=== PATIENT | female | born 1930 | race Hispanic/Latino ===

== ENCOUNTER 2017-04-14 16:40 | Emergency (ER) | payer MEDICARE ==
[2017-04-14] MEDS ORDERED: MORPHINE IV ONE (17:08)
[2017-04-14 17:42] LABS: Basophils % (Auto) 0.4 % (0.0-1.8); Eosinophils % (Auto) 1.7 % (0.0-4.3); Hematocrit 34.4 % (30.3-42.9); Hemoglobin 11.8 gm/dl (10.1-14.3); Mean Corpuscular HGB Conc 34 % (30-34); Mean Corpuscular Hemoglobin 32 pg (28-32); Mean Corpuscular Volume 93 fl (79-97); Platelet Count 140 K/mm3 (140-440); Red Cell Distribution Width 13.6 % (13.2-15.2); White Blood Count 7.1 K/mm3 (4.5-11.0)
--- NOTE | 2017-04-14 17:43 | XRay Report ---
FINAL REPORT EXAM: XR WRIST 2V RT HISTORY: RIGHT WRIST PAIN COMPARISONS: None. FINDINGS: Portable AP and lateral views of the right wrist Diffuse demineralization. Ossific fragment at the dorsal aspect of the carpus on lateral view measures up to 8 millimeters. Soft tissue swelling about the carpus. Calcification is present in the region of the triangle fibrocartilage and scapholunate ligament. Osseous lucencies are present surrounding the triscaphe joint most prominent in the distal capitate and scaphoid bones. Carpometacarpal osteoarthrosis. The distal radius and ulna appear intact. IMPRESSION: If patient has had a recent injury, the 8 millimeter ossific fragment at the dorsal aspect of the carpus may represent a triquetrum avulsion fracture. Pyrophosphate arthropathy.
[2017-04-14 17:52] LABS: INR 1.12 (0.87-1.13)
[2017-04-14 17:53] LABS: Partial Thromboplastin Time 26.5 Sec. (24.2-36.6)
--- NOTE | 2017-04-14 17:55 | Cat Scan Report ---
FINAL REPORT EXAM: CT HEAD/BRAIN WO CON HISTORY: fall/facial swelling TECHNIQUE: CT imaging is acquired through the brain without contrast. Transaxial reformations are provided. PRIORS: None. FINDINGS: Ventricles and CSF spaces are proportionately enlarged, consistent with parenchymal atrophy. Scattered deep and subcortical white matter hypodense foci are confluent in some areas and are compatible with microvascular angiopathy. No acute intracranial hemorrhage or mass effect. Calvarium and superficial scalp are intact. Partially visualized paranasal sinuses are clear. Mastoids are clear. IMPRESSION: No acute intracranial abnormality. 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 Please see CT face of the same date.
--- NOTE | 2017-04-14 18:00 | Cat Scan Report ---
FINAL REPORT EXAM: CT FACIAL BONES WO CON HISTORY: fall/facial swelling TECHNIQUE: CT images are acquired through the face without contrast. Transaxial , coronal and sagittal reformations are provided. PRIORS: None. FINDINGS: No facial fractures. Right frontal, periorbital and facial soft tissue swelling. Focal edema and/or hemorrhage is present anterior to the right malar eminence. The bony orbits, nasal bones, pterygoid plates, mandible and maxilla are intact. Normal spherical shape of the globes. Mild mucosal thickening with small fluid level in the left maxillary sinus. No other significant abnormality within the imaged paranasal sinuses or mastoid air cells. IMPRESSION: No facial fracture. Right frontal and facial soft tissue swelling as above. Mild left maxillary sinus disease with small fluid level. Correlation for symptoms of acute sinusitis is requested.
--- NOTE | 2017-04-14 18:09 | Cat Scan Report ---
FINAL REPORT EXAM: CT CERVICAL SPINE WO CON HISTORY: fall/facial swelling TECHNIQUE: CT imaging is acquired through the cervical spine without contrast. Transaxial, coronal and sagittal reformations are provided. PRIORS: None. FINDINGS: The cervical spine is intact. Vertebral body heights are preserved. No acute fracture or listhesis. Atlanto-dens interval and odontoid process are intact. Intervertebral disc spaces are largely preserved, with the exception of moderate intervertebral disc space narrowing with endplate spondylosis at C5-C6. No perivertebral soft tissue swelling or hematoma identified. Limited soft tissue exam of the visualized neck is remarkable for carotid calcification. There is heterogeneous enlargement of the thyroid gland. AP central 2.5 centimeter hypodense thyroid nodule is present. IMPRESSION: No acute cervical spine fracture identified. Correlate with physical exam and follow up as warranted. Marked heterogeneous enlargement of the thyroid gland including 2.5 centimeter anterior central nodule. Ultrasound follow-up is recommended if these findings have not been previously documented.
--- NOTE | 2017-04-14 19:09 | Emergency Department Report ---
ED Fall HPI - General Chief Complaint: Fall Stated Complaint: FALL/SWOLLEN FACE Time Seen by Provider: 04/14/17 17:02 Source: patient, family, RN notes reviewed Mode of arrival: Ambulatory Limitations: No Limitations - History of Present Illness Initial Comments: 87-year-old female presents to the emergency department status post fall. Patient was at a local restaurant and was about to leave when she tripped over a doorstop falling forward. She states she extended her right hand to catch her fall and she hit her head and right side of the face on a window sill. There was no loss of consciousness. Patient denies chest pain, shortness of breath, palpitations, or dizziness prior to the fall. Patient is complaining of right-sided facial pain and pain in her right wrist. There are no other complaints. MD Complaint: fall -: Sudden, This afternoon Fall From: standing When Fall Occurred: just prior to arrival Fall Witnessed: yes, by family Place Fall Occurred: other (restaurant) Loss of Consciousness: none Prolonged Down Time?: no Symptoms Prior to Fall: none Location: head, face Location - Extremities: Right: Hand Severity: moderate Severity scale (0 -10): 5 Quality: aching Context: tripped/slipped - Related Data Home Medications Medication Instructions Recorded Confirmed Last Taken Amlodipine Besylate 5 mg PO DAILY 10/20/13 10/20/13 10/25/13 Aspirin [Aspirin BABY CHEW TAB] 81 mg PO QDAY 10/20/13 10/20/13 10/20/13 Calcium Carb & Citrate/Vit D3 1 tab PO DAILY 10/20/13 10/20/13 10/25/13 [Calcium + Vitamin D3 Caplet] Carvedilol 12.5 mg PO BID 10/20/13 10/20/13 10/25/13 Clonidine HCl 0.1 mg PO BID 10/20/13 10/20/13 10/25/13 Clopidogrel Bisulfate [Clopidogrel] 75 mg PO DAILY 10/20/13 10/20/13 10/20/13 Glimepiride 2 mg PO DAILY 10/20/13 10/20/13 10/25/13 Pantoprazole Sodium 40 mg PO DAILY 10/20/13 10/20/13 10/25/13 Simvastatin 40 mg PO DAILY 10/20/13 10/20/13 10/25/13 Previous Rx's Medication Instructions Recorded Last Taken Type Cephalexin [Keflex] 500 mg PO Q12H #4 capsule 04/07/15 Unknown Rx Lisinopril [Zestril TAB] 10 mg PO BID #60 tablet 04/07/15 Unknown Rx HYDROcodone/APAP 5-325 [[place] 1 each PO Q6HR PRN #20 tablet 04/14/17 Unknown Rx 5/325] Allergies Allergy/AdvReac Type Severity Reaction Status Date / Time levofloxacin [From Levaquin] Allergy Unknown Unknown Verified 10/26/13 11:31 ED Review of Systems ROS: Stated complaint: FALL/SWOLLEN FACE Other details as noted in HPI Comment: All other systems reviewed and negative Musculoskeletal: as per HPI, arthralgia ED Past Medical Hx - Past Medical History Previous Medical History?: Yes Hx Hypertension: Yes (2002) Hx Diabetes: Yes (2007;NIDDM off meds per MD orders) Hx GERD: Yes (2002) - Surgical History Past Surgical History?: Yes Hx Open Heart Surgery: Yes Additional Surgical History: R leg surgery, R knee - Family History Family history: no significant - Social History Smoking Status: Never Smoker Substance Use Type: Prescribed - Medications Home Medications: Home Medications Medication Instructions Recorded Confirmed Last Taken Type Amlodipine Besylate 5 mg PO DAILY 10/20/13 10/20/13 10/25/13 History Aspirin [Aspirin BABY CHEW TAB] 81 mg PO QDAY 10/20/13 10/20/13 10/20/13 History Calcium Carb & Citrate/Vit D3 1 tab PO DAILY 10/20/13 10/20/13 10/25/13 History [Calcium + Vitamin D3 Caplet] Carvedilol 12.5 mg PO BID 10/20/13 10/20/13 10/25/13 History Clonidine HCl 0.1 mg PO BID 10/20/13 10/20/13 10/25/13 History Clopidogrel Bisulfate [Clopidogrel] 75 mg PO DAILY 10/20/13 10/20/13 10/20/13 History Glimepiride 2 mg PO DAILY 10/20/13 10/20/13 10/25/13 History Pantoprazole Sodium 40 mg PO DAILY 10/20/13 10/20/13 10/25/13 History Simvastatin 40 mg PO DAILY 10/20/13 10/20/13 10/25/13 History Cephalexin [Keflex] 500 mg PO Q12H #4 capsule 04/07/15 Unknown Rx Lisinopril [Zestril TAB] 10 mg PO BID #60 tablet 04/07/15 Unknown Rx HYDROcodone/APAP 5-325 [[place] 1 each PO Q6HR PRN #20 tablet 04/14/17 Unknown Rx 5/325] ED Physical Exam - General Limitations: No Limitations General appearance: alert, in no apparent distress - Head Head exam: Present: normocephalic, other (edema and ecchymosis noted to the right face. Mild periorbital edema. Right face is tender to palpation. No definite deformity or crepitus is palpated.) - Eye Eye exam: Present: normal appearance, PERRL, EOMI - ENT ENT exam: Present: normal exam, mucous membranes moist, other (right upper bicuspid is absent. No bleeding noted.) - Neck Neck exam: Present: normal inspection, tenderness. Absent: meningismus - Respiratory Respiratory exam: Present: normal lung sounds bilaterally. Absent: respiratory distress - Cardiovascular Cardiovascular Exam: Present: regular rate, normal rhythm, normal heart sounds - GI/Abdominal GI/Abdominal exam: Present: soft, normal bowel sounds. Absent: distended, tenderness - Extremities Exam Extremities exam: Present: full ROM, tenderness, other (mild ecchymosis noted on the radial aspect of the ventral right wrist. Tenderness to palpation of the right wrist. No obvious deformity noted.) - Back Exam Back exam: Present: normal inspection, full ROM. Absent: tenderness - Neurological Exam Neurological exam: Present: alert, oriented X3. Absent: motor sensory deficit - Skin Skin exam: Present: warm, dry, intact ED Course Vital Signs 04/14/17 04/14/17 16:46 17:00 Temperature 98.2 F 97.9 F Pulse Rate 77 65 Respiratory 20 18 Rate Blood Pressure 182/72 Blood Pressure 179/61 [Left] O2 Sat by Pulse 97 99 Oximetry ED Medical Decision Making - Lab Data Result diagrams: 04/14/17 17:32 - Radiology Data Radiology results: report reviewed, image reviewed CTs of the head, facial bones, and cervical spine reveal no acute bony injuries. There is no evidence of intracranial injury. Soft tissue swelling is noted to the right face. X-ray of the right wrist reveals an 8 mm ossific fragment at the dorsal aspect of the carpus which may represent a triquetrum avulsion fracture. - Medical Decision Making Lab and imaging results reviewed and discussed with the patient and family. Pain is improved with medication. Swelling has decreased with application of an ice pack. Patient will be placed in a right wrist Velcro splint. She has an appointment with her primary care physician in the morning. Patient will be discharged home at this time. - Differential Diagnosis fracture, contusion, SDH Critical care attestation.: If time is entered above; I have spent that time in minutes in the direct care of this critically ill patient, excluding procedure time. ED Disposition Clinical Impression: Fall Qualifiers: Encounter type: initial encounter Qualified Code(s): W19.XXXA - Unspecified fall, initial encounter Facial contusion Qualifiers: Encounter type: initial encounter Qualified Code(s): S00.83XA - Contusion of other part of head, initial encounter Strain of right wrist Qualifiers: Encounter type: initial encounter Qualified Code(s): S66.911A - Strain of unspecified muscle, fascia and tendon at wrist and hand level, right hand, initial encounter Disposition: DISCHARGED TO HOME OR SELFCARE Is pt being admited?: No Condition: Stable Instructions: Contusion in Adults (ED), Wrist Injury (ED) Prescriptions: HYDROcodone/APAP 5-325 [[place] 5/325] 1 each PO Q6HR PRN #20 tablet PRN Reason: Pain Referrals: PRIMARY CARE, [Primary Care Provider] - 3-5 Days Time of Disposition: 19:09
[2017-04-14 19:37] VITALS: BP 168/89
== END 2017-04-14 19:36 | disposition home or self-care (01) ==
LOC: ED 16:40
DX: S66.911A Strain of unspecified muscle, fascia and tendon at wrist and hand level, right hand, initial encounter (principal); S00.83XA Contusion of other part of head, initial encounter; I10 Essential (primary) hypertension; E11.9 Type 2 diabetes mellitus without complications; Z88.8 Allergy status to other drugs, medicaments and biological substances; W01.0XXA Fall on same level from slipping, tripping and stumbling without subsequent striking against object, initial encounter; Y93.89 Activity, other specified; Y99.8 Other external cause status; Y92.89 Other specified places as the place of occurrence of the external cause
CPT/HCPCS: 29125; 36415; 70450; 70486; 72125; 73100; 85025; 85610; 85730; 96374; 99284; J2270